=== PATIENT | female | born 1985 | race Caucasian/White ===

== ENCOUNTER 2017-09-20 01:21 | Emergency (ER) | payer OTHER, SELFPAY ==
[2017-09-20 01:48] VITALS: BP 132/86; PULSE 96; RESP 15; TEMP 36.7; O2SAT 100; BMI 24.3
[2017-09-20 01:49] LABS: Appearance Urine UA SL CLOUDY; Bilirubin Urine UA NEGATIVE (NEGATIVE); Color Urine UA RED; Glucose Urine UA NEGATIVE (Normal); Ketones Urine UA NEGATIVE (NEGATIVE); Leukocyte Esterase Urine UA 3+ (NEGATIVE); Nitrite Urine UA Negative (Negative); Occult Blood Urine UA 3+ (Negative); Protein Urine UA 2+ (Negative); Urobilinogen Urine UA 0.2 E.U./dL (0.2); pH Urine UA 6.5 (4.5-8.0)
[2017-09-20 02:08] LABS: Bacteria Urine Few (2-10); Culture Indicated Urine Specimen Cultured; RBC Urine 30-100/HPF (0-5/HPF); WBC Urine 10-30/HPF (0-5/HPF)
--- NOTE | 2017-09-20 02:17 | ED.FEMALEGU ---
HPI - Female Genitourinary General Chief complaint: Urogenital-Female Stated complaint: FREQUENT URINATION PAIN PEEING BLOOD Time Seen by Provider: 09/20/17 01:37 Source: patient Mode of arrival: ambulatory Limitations: no limitations History of Present Illness HPI Narrative: Patient is a 31-year-old female presenting with hematuria and painful urination. She said it started about 11:00 p.m. this evening. She has gross blood in her urine is not on her menses cycle. She denies any flank pain. She denies any fever for suprapubic.. Complaint: dysuria Related Data Home Medications Medication Instructions Recorded Confirmed levonorgestrel 20 mcg/24 hr (5 INTRAUTERINE each 07/12/17 07/12/17 years) intrauterine device Previous Rx's Medication Instructions Recorded sulfamethoxazole-trimethoprim 1 tab PO BID 5 Days #10 tab 09/20/17 [Bactrim DS] Allergies Allergy/AdvReac Type Severity Reaction Status Date / Time No Known Drug Allergies Allergy Verified 09/20/17 01:46 Review of Systems Review of Systems All systems reviewed & are unremarkable except as noted in HPI and below Constitutional Denies chills, Denies fever(s), Denies lethargy and Denies weakness Cardiovascular Denies chest pain, Denies irregular heart rhythm, Denies lightheadedness, Denies palpitations, Denies dyspnea, Denies dyspnea on exertion and Denies orthopnea Respiratory Denies cough, Denies dyspnea, Denies dyspnea on exertion and Denies wheezing Gastrointestinal Gastrointestinal: Denies abdominal pain, Denies change in bowel habits, Denies diarrhea, Denies nausea and Denies vomiting Genitourinary Reports as per HPI Musculoskeletal Denies back pain, Denies muscle weakness, Denies numbness and Denies tingling Integumentary/Breasts Denies pruritus, Denies erythema, Denies rash and Denies wounds Neurologic Denies numbness, Denies tingling and Denies weakness Endocrine Denies palpitations Allergic/Immunologic Denies wheezing [facility] Social History Smoking Status: Never smoker alcohol intake: never substance use type: does not use Exam Initial Vital Signs Initial Vital Signs: Vital Signs Temperature 98.1 F 09/20/17 01:48 Pulse Rate 96 H 09/20/17 01:48 Respiratory Rate 15 09/20/17 01:48 Blood Pressure 132/86 H 09/20/17 01:48 Pulse Oximetry 100 09/20/17 01:48 Const General: cooperative and healthy appearing Nutritional Appearance: average body habitus and well nourished Chest Chest: normal inspection of the chest Resp Effort & Inspection: normal respiratory effort and able to speak in complete sentences Cardio Pulses: normal peripheral pulses GI Inspection: normal to inspection Palpation: soft, No guarding, No rigid and No tender General: No CVA tenderness Skin General: no rashes or lesions noted Lesions: no lesions Rashes: no rashes Neuro General: alert, awake and oriented x3 Course Orders Ordered: ED Orders 09/20/17 01:47 Urinalysis and Microscopic Stat Urine Culture Stat Discontinued Medications Phenazopyridine HCl (Pyridium 100mg Prepack) 1 bottle MISC SEEINSTR ONE Stop: 09/20/17 02:21 Last Admin: 09/20/17 02:26 Dose: 1 bottle Trimethoprim/Sulfamethoxazole (Bactrim Ds Prepack) 1 bottle MISC SEEINSTR ONE Stop: 09/20/17 02:21 Last Admin: 09/20/17 02:26 Dose: 1 bottle Vital Signs - 8 hr 09/20/17 01:48 Temperature 98.1 F Pulse Rate 96 H Respiratory Rate 15 Blood Pressure 132/86 H Pulse Oximetry 100 MDM - Female Genitourinary Lab Data Lab Results 09/20/17 Range/Units 01:47 Urine Color Red Urine Appearance Sl cloudy Urine pH 6.5 (4.5-8.0) Ur Specific [place] 1.010 (1.000-1.035) Urine Protein 2+ H (Negative) Urine Glucose (UA) Negative (Normal) g/dL Urine Ketones Negative (NEGATIVE) Urine Occult Blood 3+ H (Negative) Urine Nitrate Negative (Negative) Urine Bilirubin Negative (NEGATIVE) Urine Urobilinogen 0.2 (0.2) E.U./dL Ur Leukocyte Esterase 3+ H (NEGATIVE) Urine RBC 30-100/hpf H (0-5/HPF) Urine WBC 10-30/hpf H (0-5/HPF) Urine Bacteria Few (2-10) H (None) Ur Culture Indicated? Specimen cultured Micro UA Comment Not Reportable Discharge Plan Departure Patient Disposition: Home, Self-Care Clinical Impression: Urinary tract infection Discharge Date/Time: 09/20/17 02:35 Interventions: ED Discharge Assessment Last Done: 09/20/17 02:33 Instructions: DI for Urinary Tract Infection (UTI) Activity Restrictions/Additional Instructions: *You have been diagnosed with UTI *What to do: Increase fluid *Continue to take medications as directed At your request you're medications have been faxed to [facility] in [place] -Pyridium 1 tablet 3 times a day if needed for painful urination -Septra 1 tablet twice a day for 5 days *Follow up with your primary care provider in 2-3 days *Return to ER if you should have any new, worsening or concerning symptoms Prescriptions: New sulfamethoxazole-trimethoprim [Bactrim DS] 800-160 mg tablet 1 tab PO BID 5 Days Qty: 10 RF: 0 No Action levonorgestrel [Mirena] 20 mcg/24 hr (5 years) intrauterine device Intrauterine RF: 0
[2017-09-20] MEDS: SULFA/TRIMETH 800/160 PREPACK 1 BOTTLE MISC (02:26)
[2017-09-20] MEDS: PHENAZOPYRIDINE 100 MG PREPACK 1 BOTTLE MISC (02:26)
== END 2017-09-20 02:35 | disposition home or self-care (01) ==
PROVIDERS: Emergency Provider Emergency Medicine
DX: N39.0 Urinary tract infection, site not specified (principal)
CPT/HCPCS: 81001; 81025; 87077; 87086; 87186; 99282; 99283

== ENCOUNTER → 2024-01-10 10:23 | Outpatient (CLI) | payer OTHER, SELFPAY ==
[2024-01-10 12:00] LABS: Influenza A - CEPHEID Flu A NEGATIVE (NEGATIVE); Influenza B - CEPHEID Flu B NEGATIVE (NEGATIVE); Respiratory Syncytial Virus Negative (Negative)
[2024-01-10 12:01] LABS: COVID-19 CEPHEID 4-PLEX PCR Negative (Negative)
== END ==
PROVIDERS: Visit Provider Physician Assistant
DX: R05.1 Acute cough (principal); J06.9 Acute upper respiratory infection, unspecified
CPT/HCPCS: 0241U